=== PATIENT | female | born 1940 | race Caucasian/White ===

== ENCOUNTER 2022-07-22 11:00 | Outpatient (RCR) | payer MEDICARE, SELFPAY ==
--- NOTE | 2022-06-10 11:32 | PTOPEVAL1 ---
Assessment and note entered by Mini Gandhi, PT, DPT Evaluation Information Assessment Status Evaluation Diagnosis Ankylosing spinal arthritis Onset chronic Subjective Information Pt states she has spinal arthritis as well as an autoimmune disease that affects her mobility from day to day. 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 She states she does really well with her walker. She declines any falls in the last 6 months. Assessment PT Clinical Summary Verenice Guevara) is an 81 y/o female who presents to therapy today for her intial evaluation with a diagnosis of ankylosing spine arthritis DISH. Today she demonstrates decreased active lumbar ROM in all directions limited by pain as well as decreased intervertebral motions through palpation. She demonstrates significant tenderness to palpation throughout R piriformis region, R QL, and mango lumbar and thoracic paraspinals. Skilled physical therapy services are indicated for pain management, to increase soft tissue extensibility, to increased active joint mobility, and to promote independence. Plan of Care Interventions Electrical Stimulation,Gait Training,Hot Pack/Cold Pack,Manual Therapy,Neuro Re-education,Patient/ Caregiver Educati,Therapeutic Activities, Therapeutic Exercise PT Services Indicated Yes Treatment Frequency and 1x/wk for 6 wks Duration These treatments will address the objective and functional deficits as defined above. The patient will be advanced safely and appropriately in order for the patient to progress towards his/her prior level of function. Additional exercises will be introduced and as well as a comprehensive home exercise program upon discharge, if needed, ?to ensure carryover of functional gains achieved in the clinic. This treatment plan has been reviewed and agreement upon by the patient.
--- NOTE | 2022-07-23 10:01 | PTOPDC ---
Assessment and note entered by Mini Gandhi, PT, DPT Evaluation Information Assessment Status Discharge Diagnosis Ankylosing spinal arthritis Onset chronic Subjective Information Pt states she is overall doing well. She feels like she has gotten stronger and is moving more. Continues to decline falls and reports good compliance with her HEP. She states she has started to doing daily chores again including folding laundry and mopping without limitations. She reports feeling confident enough to walk short distances without her walker. Complains of hand numbness and tingling that starts daily around 4am , states this goes away about 10am once she has been up and moving for a while. She reports 50% improvement in overall symptoms. Reported Pain Level Pain Score 6,5: Self Report Assessment PT Clinical Summary Verenice Rhoades presents to therapy today for her progress report following 6 visits of skilled therapy to treat her diagnosis of cervical spinal cord compression. Pt report little improvements in pain but 50% improvement in her overall symptoms. She continues to have very limited cervical ROM and lumbar ROM but limited by pain and mobility. She reports good compliance with her HEP. D/t worsening health of her she would like to be discharged at this time. She was instructed to follow up with referring provider if she need additional therapy later. Plan of Care PT Services Indicated No
== END 2022-07-23 13:08 | disposition home or self-care (01) ==
LOC: ANHGOSHPT 11:00
PROVIDERS: PCP Internal Medicine Geriatric Medicine; Visit Provider Internal Medicine Geriatric Medicine
DX: G95.20 Unspecified cord compression (principal)
CPT/HCPCS: 97014; 97110; 97112; 97140; 97161; 97530; G0283